=== PATIENT | female | born 1960 | race Caucasian/White ===

== ENCOUNTER → 2017-08-07 | Outpatient (CLI) | payer OTHER ==
--- NOTE | 2017-08-07 14:04 | WWHP ---
[facility] - HISTORY AND PHYSICAL DATE OF DICTATION: 08/07/2017 CHIEF COMPLAINT: The patient is here for her routine gynecologic exam and mammogram. HPI: This is a 56-year-old G2, P2 with an LMP of 2006. The patient denies any postmenopausal bleeding. She has had some increasing vaginal dryness with sexual intercourse. This has been improved with vaginal lubricant. She is otherwise without complaints. PAST MEDICAL HISTORY: Unremarkable. MEDICATIONS: 1. Multivitamin daily. 2. Vitamin B complex daily. 3. Vitamin D 5000 units daily. 4. Super Beats powder supplement daily. ALLERGIES: No known drug allergies. PAST SURGICAL HISTORY: Colonoscopy in in 06/2017. Also history of tubal ligation, open cholecystectomy, gastric by-pass surgery, abdominal hernia repair and breast biopsies in the past. 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 SOCIAL HISTORY: She quit smoking in her 30's and has 1 to 5 alcohol containing drinks per month. She denies drug use. She has been since 1988. 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 REVIEW OF SYSTEMS: She has lost 2 pounds over the last year. She denies respiratory, cardiac or GI problems. PHYSICAL EXAM: Blood pressure 120/58, height 5 feet 4 inches, weight 224 pounds, BMI 38, temperature 96.9, pulse 54. This is a well-developed, well-nourished, white female, who is alert and oriented x3, in no acute distress. HEENT is within normal limits. NECK: Supple without mass or thyromegaly. CHEST AND LUNGS: Clear to auscultation. HEART: Regular rate and rhythm. Breasts are without mass or discharge. Axillary exam is negative for adenopathy. Back negative for CVA tenderness. ABDOMEN: Soft, nontender, without palpable masses. PELVIC EXAM: External genitalia reveals mild atrophy without lesions. Cervix and vagina reveals mild atrophy without lesions. There is no evidence of prolapse. The uterus is mid position, nongravid size and nontender. There are no palpable adnexal masses or tenderness. Rectovaginal exam is negative for mass or tenderness and is negative for occult blood. EXTREMITIES: Nontender. IMPRESSION: 1. A 56-year-old menopausal female with normal gynecologic exam. 2. Vaginal dryness improved with [id number] lubricant. PLAN: 1. Pap smear was deferred since she had a normal one less than 2 years ago. 2. Self-breast examination was discussed. 3. Mammogram will be done today. 4. Osteoporosis prevention was discussed. 5. She will return in 1 year. MMSILVERIO / CHANN: [phone] /
--- NOTE | 2017-08-08 09:38 | MM ---
Reason for exam: screening (asymptomatic). Last mammogram was performed 1 year and 9 months ago. History: Patient is postmenopausal. Family history of premenopausal breast cancer in mother and breast cancer in maternal grandmother at age 58. Benign stereotactic core biopsy of the right breast, October 30, 2002. Benign excisional biopsy of the right breast, October 07, 2001. Core biopsy of the right breast. Took estrogen for 2 years beginning at age 48. Physical Findings: A clinical breast exam by your physician is recommended on an annual basis and results should be correlated with mammographic findings. MG Screening Mammo w CAD Bilateral CC and MLO view(s) were taken. Prior study comparison: November 02, 2015, bilateral MG 3d screening mammo w/cad. May 14, 2012, CAD bilateral diagnostic mammogram. The breast tissue is heterogeneously dense. This may lower the sensitivity of mammography. Finding: There are occasional typically benign round calcifications in both breasts. Previous mammotome biopsy in the right breast. There is no discrete abnormality. ASSESSMENT: Benign, BI-RAD 2 RECOMMENDATION: Routine screening mammogram of both breasts in 1 year.
== END | disposition home or self-care (01) ==
LOC: WWCWWP 08:48
PROVIDERS: ATTEND Obstetrics & Gynecology
DX: Z12.31 Encounter for screening mammogram for malignant neoplasm of breast (principal)
CPT/HCPCS: 77067

== ENCOUNTER → 2020-09-08 | Outpatient (CLI) | payer OTHER ==
--- NOTE | 2020-09-10 11:02 | MM ---
Reason for exam: screening (asymptomatic). Last mammogram was performed 3 years and 1 month ago. History: Patient is postmenopausal. Family history of premenopausal breast cancer in mother and breast cancer in maternal grandmother at age 58. Benign stereotactic core biopsy of the right breast, October 30, 2002. Benign excisional biopsy of the right breast, October 07, 2001. Core biopsy of the right breast. Took estrogen for 2 years beginning at age 48. Physical Findings: A clinical breast exam by your physician is recommended on an annual basis and results should be correlated with mammographic findings. MG 3D Screening Mammo W/Cad Bilateral CC and MLO view(s) were taken. Prior study comparison: August 07, 2017, bilateral MG screening mammo w CAD. November 08, 2015, left breast MG 3d work up w/cad LT. The breast tissue is heterogeneously dense. This may lower the sensitivity of mammography. There is no discrete abnormality. No significant changes when compared with prior studies. ASSESSMENT: Negative, BI-RAD 1 RECOMMENDATION: Routine screening mammogram of both breasts in 1 year.
== END | disposition home or self-care (01) ==
LOC: RADMAMWWP 05-28 13:06
PROVIDERS: ATTEND Family Medicine
DX: Z12.31 Encounter for screening mammogram for malignant neoplasm of breast (principal)
CPT/HCPCS: 77063; 77067

== ENCOUNTER → 2022-02-24 | Outpatient (CLI) | payer OTHER ==
--- NOTE | 2022-02-27 19:04 | MM ---
Reason for Exam: Screening (asymptomatic). Last mammogram was performed 1 year(s) and 5 month(s) ago. Patient History: Menarche at age 9. First Full-Term at age 19. Postmenopausal. Estrogen for 2 years from age 48 until age 50. Core Biopsy on the Right side. 10/30/2002, Benign Stereotactic Core Biopsy on the right side. 10/07/2001, Benign Excisional Biopsy on the right side. Maternal grandmother had breast cancer, age 58. Mother had breast cancer. Risk Values: Audrey 5 year model risk: 4.9%. NCI Lifetime model risk: 19.6%. Prior Study Comparison: 11/08/2015 Left Diagnostic Mammogram, [facility]. 08/07/2017 Bilateral Screening Mammogram, [facility]. 09/08/2020 Bilateral Screening Mammogram, [facility]. Tissue Density: The breast tissue is heterogeneously dense. This may lower the sensitivity of mammography. Findings: Analyzed By CAD. Multiple bilateral areas of asymmetric densities appear unchanged when comparing over. Is prior exams. Microclip right breast from prior biopsy. No significant change from prior exams. Overall Assessment: Benign, BI-RAD 2 Management: Screening Mammogram of both breasts in 1 year. 1. We note that the patient has a 20% lifetime risk for the development of breast cancer. The patient may qualify for alternating screening mammogram and screening breast MRI at six-month intervals. 2. Patient should continue monthly self breast exams. A clinical breast exam by your physician is recommended on an annual basis. 3. This examination should not preclude additional follow-up of suspicious palpable abnormalities. Electronically signed and approved by: Jaime Phipps M.D. Radiologist
== END | disposition home or self-care (01) ==
LOC: RADMAMWWP 16:12
PROVIDERS: ATTEND Obstetrics & Gynecology
DX: Z12.31 Encounter for screening mammogram for malignant neoplasm of breast (principal)
CPT/HCPCS: 77067

== ENCOUNTER → 2022-07-03 | Outpatient (CLI) | payer OTHER ==
--- NOTE | 2022-07-03 13:39 | XR ---
EXAMINATION TYPE: XR abdomen 2V DATE OF EXAM: 07/03/2022 1:07 PM INDICATION: Patient age:Female; 61 years old; Reason for study: R52 pain constipation; . COMPARISON: None. TECHNIQUE: Two views of the abdomen were obtained. FINDINGS: There is a moderate amount stool in ascending colon. The bowel gas pattern is nonspecific w ithout dilated loops of small or large bowel. There is no evidence for organomegaly or pneumoperitone um. The osseous structures are intact. Pelvic phleboliths are present. Fecal material and gas are demonstrated throughout the colon and rectum. Surgical clips project over the mid abdomen and lower pelvis. IMPRESSION: Moderate stool burden predominantly in the ascending colon.
== END | disposition home or self-care (01) ==
LOC: RADXRMAIN 12:48
PROVIDERS: ATTEND Nurse Practitioner Family
DX: R19.5 Other fecal abnormalities (principal)
CPT/HCPCS: 74019

== ENCOUNTER 2022-12-08 09:23 | Day surgery (SDC) | payer OTHER ==
[~2022-12-08 09:23] MED LIST: LACTATED RINGERS 1,000 ML IV SCH; LIDOCAINE 1% (10MG/ML) FOR IV START INTRADERMA PRN
[2022-12-08 09:51] VITALS: TEMP 97
[2022-12-08] MEDS ORDERED: LIDOCAINE 2% INJ 20 MG/ML (2 ML VIAL) ONE (10:25)
[2022-12-08] MEDS ORDERED: PROPOFOL 10 MG/ML 20 ML VIAL IV ONE (10:25)
--- NOTE | 2022-12-08 10:52 | P.PCN ---
Date of Procedure: 12/08/22 Procedure(s) Performed: BRIEF HISTORY: Patient is a 62-year-old pleasant female scheduled for an elective colonoscopy as a part of screening for colon cancer and family history of colon cancer. Her father was diagnosed with colon cancer at age 64 maternal grandmother is a 65. PROCEDURE PERFORMED: Colonoscopy. PREOPERATIVE DIAGNOSIS: Screening for colon cancer and family history of colon cancer. IV sedation per Anesthesia. PROCEDURE: After informed consent was obtained, the patient, was brought into the endoscopy unit. IV sedation was administered by Anesthesia under continuous monitoring. Digital rectal examination was normal. Initially the Olympus CF-160 flexible video colonoscope was then inserted in the rectum, gradually advanced into the cecum with moderate difficulty. Careful examination was performed as the scope was gradually being withdrawn. Ileocecal valve and the appendiceal o rifice were visualized and appeared normal. Prep was excellent. Mucosa of the cecum, ascending colon, transverse colon, descending colon, sigmoid colon, and rectum appeared normal. Retroflexion was performed in the rectum and no lesions were seen. The patient tolerated the procedure well. IMPRESSION: Normal-appearing colon from rectum to cecum with no evidence of colorectal neoplasia. RECOMMENDATIONS: Findings of this examination were discussed with the patient well as her family. She was advised to have a repeat screening colonoscopy every 5 years because of the family history of colon cancer..
[2022-12-08 11:16] VITALS: BP 131/65; PULSE 56; RESP 14
== END 2022-12-08 11:30 | disposition home or self-care (01) ==
LOC: ORWHC2ENDO 09:23
PROVIDERS: ATTEND Internal Medicine Gastroenterology
DX: Z12.11 Encounter for screening for malignant neoplasm of colon (principal); Z80.0 Family history of malignant neoplasm of digestive organs; Z79.899 Other long term (current) drug therapy; Z91.013 Allergy to seafood
CPT/HCPCS: 45378; J2704; J2001

== ENCOUNTER → 2023-11-29 | Outpatient (CLI) | payer MEDICARE, OTHER ==
--- NOTE | 2023-11-30 11:30 | MM ---
Reason for Exam: Screening (asymptomatic). Last mammogram was performed 1 year(s) and 10 month(s) ago. Patient History: Menarche at age 9. First Full-Term at age 19. Postmenopausal. Estrogen for 2 years from age 48 until age 50. 12/26/2022, Bilateral Reduction. Core Biopsy on the Right side. 10/30/2002, Benign Stereotactic Core Biopsy on the right side. 10/07/2001, Benign Excisional Biopsy on the right side. Maternal grandmother had breast cancer, age 58. Mother had breast cancer. Risk Values: Audrey 5 year model risk: 5.1%. NCI Lifetime model risk: 19.0%. Prior Study Comparison: 08/07/2017 Bilateral Screening Mammogram, [facility]. 09/08/2020 Bilateral Screening Mammogram, [facility]. 02/24/2022 Bilateral MG screening mammo w CAD, [facility]. Tissue Density: The breasts are heterogeneously dense, which may obscure small masses. Findings: Analyzed By CAD. Irregular density in the central upper right breast. Recommend spot compression views. Surgical clip right breast. Benign-appearing calcifications. Overall Assessment: Benign, BI-RAD 2 Management: Diagnostic Mammogram of the right breast. . Patient should continue monthly self-breast exams. A clinical breast exam by your physician is recommended on an annual basis. This exam should not preclude additional follow-up of suspicious palpable abnormalities. Note on Audrey scores and lifetime risk: 1. A Audrey score greater than 3% is considered moderate risk. If this is the case, consider specialist referral to assess eligibility for a risk reducing agent. 2. If overall lifetime risk for the development of breast cancer is 20% or higher, the patient may qualify for future screening with alternating mammogram and breast MRI. Electronically signed and approved by: Babak Trinh M.D. Radiologis
== END | disposition home or self-care (01) ==
LOC: RADMAMWWP 09:28
PROVIDERS: ATTEND Obstetrics & Gynecology
DX: Z12.31 Encounter for screening mammogram for malignant neoplasm of breast (principal); Z80.3 Family history of malignant neoplasm of breast; Z78.0 Asymptomatic menopausal state
CPT/HCPCS: 77063; 77067

== ENCOUNTER → 2023-12-04 | Outpatient (CLI) | payer MEDICARE ==
--- NOTE | 2023-12-04 08:54 | MM ---
Reason for Exam: Additional evaluation requested from abnormal screening. Last screening mammogram was performed less than 1 month ago. Patient History: Menarche at age 9. First Full-Term at age 19. Postmenopausal. Estrogen for 2 years from age 48 until age 50. 12/26/2022, Bilateral Reduction. Core Biopsy on the Right side. 10/30/2002, Benign Stereotactic Core Biopsy on the right side. 10/07/2001, Benign Excisional Biopsy on the right side. Maternal grandmother had breast cancer, age 58. Mother had breast cancer. Risk Values: Audrey 5 year model risk: 5.1%. NCI Lifetime model risk: 19.0%. Tissue Density: Right: The breasts are heterogeneously dense, which may obscure small masses. Findings: Analyzed By CAD. Reduction mammoplasty changes are present. Possible distortion central outer right cc view appears to disperse. Some persisting subtle distortion posterior upper outer quadrant right breast. Possibly postsurgical change. Microclip right breast on prior biopsy. Further ultrasound evaluation recommended. Overall Assessment: Incomplete: need additional imaging evaluation, BI-RAD 0 Management: Diagnostic Breast Ultrasound of the right breast. Electronically signed and approved by: Jaime Phipps M.D. Radiologist
--- NOTE | 2023-12-04 09:19 | USB ---
Reason for Exam: Additional evaluation requested from abnormal screening. Patient History: Menarche at age 9. First Full-Term at age 19. Postmenopausal. Estrogen for 2 years from age 48 until age 50. 12/26/2022, Bilateral Reduction. Core Biopsy on the Right side. 10/30/2002, Benign Stereotactic Core Biopsy on the right side. 10/07/2001, Benign Excisional Biopsy on the right side. Maternal grandmother had breast cancer, age 58. Mother had breast cancer. Risk Values: Audrey 5 year model risk: 5.1%. NCI Lifetime model risk: 19.0%. Technique: Method: Targeted. Prior Study Comparison: 09/08/2020 Bilateral Screening Mammogram, [facility]. 02/24/2022 Bilateral MG screening mammo w CAD, [facility]. 11/29/2023 Bilateral MG 3D screening mammo w/cad, [facility]. Findings: The upper outer quadrant of the right breast, the axilla of the right breast and the retroareolar of the right breast were scanned. Targeted ultrasound upper outer quadrant right breast 9:00 to 12:00 position including scanning of the subareolar region and axilla. At the 10:00 position, 8 cm from the nipple, either a bilobed or 2 adjacent cysts with aggregate dimension of 1.6 x 0.9 x 0.8 cm. Some internal hypoechoic material probably debris. There is posterior through transmission present. Some postsurgical change and/or debris filled cysts are suspected and should be reassessed at follow-up. No other solid or cystic lesion or axillary lymphadenopathy. Overall Assessment: Probably benign, BI-RAD 3 Management: Diagnostic Mammogram of both breasts in 6 months. Diagnostic Breast Ultrasound of the right breast in 6 months. A clinical breast exam by your physician is recommended on an annual basis and results should be correlated with mammographic findings. This exam should not preclude additional follow-up of suspicious palpable abnormalities. Results were given to the patient verbally at the time of exam. Note on Audrey scores and lifetime risk: 1. A Audrey score greater than 3% is considered moderate risk. If this is the case, consider specialist referral to assess eligibility for a risk reducing agent. 2. If overall lifetime risk for the development of breast cancer is 20% or higher, the patient may qualify for future screening with alternating mammogram and breast MRI. Electronically signed and approved by: Jaime Phipps M.D. Radiologist
== END | disposition home or self-care (01) ==
LOC: RADMAMWWP 08:21
PROVIDERS: ATTEND Obstetrics & Gynecology
DX: R92.331 Mammographic heterogeneous density, right breast (principal); Z78.0 Asymptomatic menopausal state; Z80.3 Family history of malignant neoplasm of breast
CPT/HCPCS: 77065; 76642; G0279; 77061

== ENCOUNTER → 2024-06-23 | Outpatient (CLI) | payer MEDICARE ==
--- NOTE | 2024-06-23 15:26 | MM ---
Reason for Exam: Follow-up at short interval from prior study. Last screening mammogram was performed 6 month(s) ago. Patient History: Menarche at age 9. First Full-Term at age 19. Postmenopausal. Estrogen for 2 years from age 48 until age 50. 12/26/2022, Bilateral Reduction. Core Biopsy on the Right side. 10/30/2002, Benign Stereotactic Core Biopsy on the right side. 10/07/2001, Benign Excisional Biopsy on the right side. Maternal grandmother had breast cancer, age 58. Mother had breast cancer. Risk Values: Audrey 5 year model risk: 5.2%. NCI Lifetime model risk: 18.4%. Prior Study Comparison: 09/08/2020 Bilateral Screening Mammogram, [facility]. 02/24/2022 Bilateral MG screening mammo w CAD, [facility]. 11/29/2023 Bilateral MG 3D screening mammo w/cad, [facility]. 12/04/2023 Right US breast workup limited RT, [facility]. 12/04/2023 Right MG 3D work up w/cad RT, [facility]. Tissue Density: The breasts are heterogeneously dense, which may obscure small masses. Findings: Analyzed By CAD. Architectural distortion posterior upper-outer quadrant right breast remains unchanged for 6 months, likely postsurgical change. Ongoing short interval follow-up is advised. Interval development of regional calcifications central upper outer quadrant left breast probably early developing fat necrosis calcification on magnification views. Short interval six-month follow-up recommended. Possible nodular asymmetric density posterior outer aspect of the left breast does not persist on the 3-D images. Overall Assessment: Probably benign, BI-RAD 3 Management: Diagnostic Mammogram of both breasts in 6 months. Total one-year follow-up right breast for suspected postsurgical distortion posterior upper-outer quadrant. Six-month follow-up left breast for calcifications probably early fat necrosis following patient's reduction mammoplasty. Results were given to the patient verbally at the time of exam. Patient should continue monthly self-breast exams. A clinical breast exam by your physician is recommended on an annual basis. This exam should not preclude additional follow-up of suspicious palpable abnormalities. Note on Audrey scores and lifetime risk: 1. A Audrey score greater than 3% is considered moderate risk. If this is the case, consider specialist referral to assess eligibility for a risk reducing agent. 2. If overall lifetime risk for the development of breast cancer is 20% or higher, the patient may qualify for future screening with alternating mammogram and breast MRI. [facility], , 06/23/2024 3:23 PM. Electronically signed and approved by: Jaime Phipps M.D. Radiologist
== END | disposition home or self-care (01) ==
LOC: RADMAMWWP 14:36
PROVIDERS: ATTEND Obstetrics & Gynecology
DX: R92.8 Other abnormal and inconclusive findings on diagnostic imaging of breast (principal); R92.333 Mammographic heterogeneous density, bilateral breasts; Z78.0 Asymptomatic menopausal state; Z80.3 Family history of malignant neoplasm of breast
CPT/HCPCS: 77066; G0279; 77062

== ENCOUNTER → 2025-01-06 | Outpatient (CLI) | payer MEDICARE ==
--- NOTE | 2025-01-06 13:39 | MM ---
Reason for Exam: Follow-up at short interval from prior study. Last screening mammogram was performed 7 month(s) ago. Patient History: Menarche at age 9. First Full-Term at age 19. Postmenopausal. Estrogen for 2 years from age 48 until age 50. 12/26/2022, Bilateral Reduction. Core Biopsy on the Right side. 10/30/2002, Benign Stereotactic Core Biopsy on the right side. 10/07/2001, Benign Excisional Biopsy on the right side. Maternal grandmother had breast cancer, age 58. Mother had breast cancer. Risk Values: Audrey 5 year model risk: 5.2%. NCI Lifetime model risk: 17.8%. Tissue Density: The breasts are heterogeneously dense, which may obscure small masses. Findings: Analyzed By CAD. Mammotome biopsy clip in the right breast is redemonstrated. Stable distortion in the upper aspect right breast posteriorly. Increasing grouped small benign-appearing round calcifications in the left breast are noted. No microcalcifications. No obvious new mass in either breast. Overall Assessment: Incomplete: need additional imaging evaluation, BI-RAD 0 Management: Diagnostic Breast Ultrasound of both breasts. Targeted ultrasound due to new palpable abnormalities bilateral breasts. Results were given to the patient verbally at the time of exam. Patient should continue monthly self-breast exams. A clinical breast exam by your physician is recommended on an annual basis. This exam should not preclude additional follow-up of suspicious palpable abnormalities. Note on Audrey scores and lifetime risk: 1. A Audrey score greater than 3% is considered moderate risk. If this is the case, consider specialist referral to assess eligibility for a risk reducing agent. 2. If overall lifetime risk for the development of breast cancer is 20% or higher, the patient may qualify for future screening with alternating mammogram and breast MRI. [facility], , 01/06/2025 1:37 PM. Electronically signed and approved by: Anil Duran M.D.
--- NOTE | 2025-01-06 15:21 | USB ---
Reason for Exam: Clinical finding. Patient History: Menarche at age 9. First Full-Term at age 19. Postmenopausal. Estrogen for 2 years from age 48 until age 50. 12/26/2022, Bilateral Reduction. Core Biopsy on the Right side. 10/30/2002, Benign Stereotactic Core Biopsy on the right side. 10/07/2001, Benign Excisional Biopsy on the right side. Maternal grandmother had breast cancer, age 58. Mother had breast cancer. Risk Values: Audrey 5 year model risk: 5.2%. NCI Lifetime model risk: 17.8%. Prior Study Comparison: 11/29/2023 Bilateral MG 3D screening mammo w/cad, [facility]. 12/04/2023 Right MG 3D work up w/cad RT, [facility]. 06/23/2024 Bilateral MG 3D diag mammo w/cad ALY, [facility]. Findings: The area of palpable concern of both breasts, the axilla of both breasts and the retroareolar of both breasts were scanned. Targeted bilateral breast ultrasound. At 2:00 position 11 cm distance from nipple in the right breast there is 3 mm simple appearing thin-walled cyst. There is additional 4 mm simple appearing thin-walled cyst in the subareolar region of the right breast. Left breast shows an 8 mm thin-walled cyst at 10:00 position 11 cm distance from nipple corresponding to palpable abnormality. Overall Assessment: Benign, BI-RAD 2 Management: Diagnostic Mammogram of both breasts in 1 year. A clinical breast exam by your physician is recommended on an annual basis and results should be correlated with mammographic findings. This exam should not preclude additional follow-up of suspicious palpable abnormalities. Results were given to the patient verbally at the time of exam. [facility], , 01/06/2025 2:00 PM. Electronically signed and approved by: Anil Duran M.D.
== END | disposition home or self-care (01) ==
LOC: RADMAMWWP 13:07
PROVIDERS: ATTEND Obstetrics & Gynecology
DX: R92.8 Other abnormal and inconclusive findings on diagnostic imaging of breast (principal); R92.1 Mammographic calcification found on diagnostic imaging of breast; R92.333 Mammographic heterogeneous density, bilateral breasts; Z78.0 Asymptomatic menopausal state; Z80.3 Family history of malignant neoplasm of breast
CPT/HCPCS: 77062; 77066